=== PATIENT | male | born 1990 | race Caucasian/White ===

== ENCOUNTER 2016-11-02 16:38 | Emergency (ER) | payer OTHER ==
[~2016-11-02] VITALS: Ht 185.4 cm; Wt 72.7 kg
[2016-11-02 16:41] VITALS: TEMP 98.5
[2016-11-02] MEDS ORDERED: LEXAPRO 10MG10 MG PO (16:44)
[2016-11-02] MEDS ORDERED: FLEXERIL 1010 MG/TAB PO (19:52)
[2016-11-02 20:15] VITALS: BP 128/67; PULSE 88
== END 2016-11-02 20:16 | disposition home or self-care (01) ==
LOC: COL.ER 16:38
DX: M54.2 Cervicalgia (principal); V43.52XA Car driver injured in collision with other type car in traffic accident, initial encounter; Y92.410 Unspecified street and highway as the place of occurrence of the external cause; R42 Dizziness and giddiness; F32.9 Major depressive disorder, single episode, unspecified
CPT/HCPCS: J1885; J2360

== ENCOUNTER 2017-02-25 04:13 | Emergency (ER) | payer BC ==
[~2017-02-25] VITALS: Ht 185.4 cm; Wt 72.7 kg
[~2017-02-25 04:13] MED LIST: FLEXERIL 1010 MG/TAB PO; LEXAPRO 10MG10 MG PO
[2017-02-25 04:23] VITALS: TEMP 97.4
[2017-02-25 06:00] VITALS: BP 126/88
[2017-02-25 06:05] VITALS: PULSE 80
== END 2017-02-25 06:06 | disposition home or self-care (01) ==
LOC: COL.ER 04:13
DX: F10.980 Alcohol use, unspecified with alcohol-induced anxiety disorder (principal); Y90.4 Blood alcohol level of 80-99 mg/100 ml; Z00.00 Encounter for general adult medical examination without abnormal findings

== ENCOUNTER 2018-01-31 21:13 | Emergency (ER) | payer BC ==
[~2018-01-31] VITALS: Ht 182.9 cm; Wt 72.7 kg
[2018-01-31 21:17] VITALS: TEMP 96.8
[2018-01-31 21:33] LABS: BASO % 0.5 % (0.0-2.0); EOS # 0.1 (0.0-0.7); EOS % 1.1 % (0-4.0); GRAN # 3.1 (1.4-6.5); GRAN % 54.3 % (42.2-75.2); HEMATOCRIT 37.5 % (42.0-52.0); HEMOGLOBIN 12.9 g/dl (13.5-18.0); LYMPH % 35.8 % (20.0-51.0); MEAN CELL VOLUME 91 fl (80.0-100.0); MEAN CORPUSCULAR HEMOGLOBIN 31 pg (27.0-31.0); MEAN CORPUSCULAR HGB CONC 34 g/dl (33.0-37.0); MEAN PLATELET VOLUME 10.1 fl (7.4-10.4); MONO # 0.4 (0.1-0.6); MONO % 7.6 % (1.7-9.3); PLATELET COUNT 244 K/mm3 (130-400); RED BLOOD COUNT 4.14 M/mm3 (4.20-5.60); REDCELL DISTRIBUTION WIDTH-CV 11.9 % (11.5-14.5)
[2018-01-31 21:51] LABS: ALANINE AMINOTRANSFERASE 32 U/L (21-72); ALBUMIN 4.1 gm/dL (3.5-5.0); ALCOHOL(ethanol),MEDICAL 42 mg/dL; ALKALINE PHOSPHATASE 72 U/L (50-136); ANION GAP 14 mmol/L (7-16); AST,SGOT 24 U/L (15-37); BILIRUBIN,TOTAL 0.2 mg/dL (0.0-1.0); BLOOD UREA NITROGEN 19 mg/dL (9-20); CALCIUM 8.2 mg/dL (8.4-10.2); CARBON DIOXIDE 25 mmol/L (22-30); CHLORIDE 100 mmol/L (98-107); CREATININE, serum 0.81 mg/dL (0.66-1.25); GLUCOSE 198 mg/dL (74-106); POTASSIUM 4.1 mmol/L (3.4-5.0); SODIUM 139 mmol/L (137-145); TOTAL PROTEIN 6.9 gm/dL (6.4-8.2)
[2018-01-31 21:53] LABS: ACETAMINOPHEN < 10 ug/mL (10-30); SALICYLATE < 1.0 mg/dL
[2018-01-31] MEDS ORDERED: NARCAN4 MG NS (22:58)
[2018-01-31 23:08] LABS: COLLECTION METHOD CLEAN CATCH
[2018-01-31 23:13] LABS: PH 6 (5-8); SQUAMOUS EPITHELIAL None Seen /hpf; URINE APPEARANCE Clear; URINE BACTERIA None Seen /hpf; URINE BILIRUBIN Negative (NEGATIVE); URINE BLOOD Negative (NEGATIVE); URINE COLOR Yellow; URINE GLUCOSE 2+ (NEGATIVE); URINE KETONE Negative (NEGATIVE); URINE LEUKOCYTE ESTERASE Negative (NEGATIVE); URINE NITRATE Negative (NEGATIVE); URINE PROTEIN(semi-quant) Negative (NEGATIVE); URINE RBC 0-2 /hpf; URINE UROBILINOGEN Negative (NEGATIVE)
[2018-01-31 23:26] LABS: TRICYCLIC ANTIDEPRESS URINE NEGATIVE
[2018-01-31 23:45] VITALS: BP 139/78; PULSE 97
== END 2018-02-01 00:05 | disposition home or self-care (01) ==
LOC: COL.ER 21:13
PROVIDERS: Emergency Medicine
DX: T40.2X1A Poisoning by other opioids, accidental (unintentional), initial encounter (principal); F32.9 Major depressive disorder, single episode, unspecified; F10.10 Alcohol abuse, uncomplicated; Y90.2 Blood alcohol level of 40-59 mg/100 ml